=== PATIENT | male | born 1955 | race Caucasian/White ===

== ENCOUNTER → 2022-10-26 | Day surgery (SDC) | payer MEDICARE ==
[~2022-10-26] MED LIST: Lactated Ringers 1,000 ML IV SCH; Propofol 200 MG/20 ML SDV ONE; fentaNYL 50 MCG/ML SDV ONE
[2022-10-26 10:54] VITALS: BP 107/72; PULSE 82
== END ==
LOC: CC.SDS 08:43
PROVIDERS: ATTEND Family Medicine
DX: K57.30 Diverticulosis of large intestine without perforation or abscess without bleeding (principal); K64.9 Unspecified hemorrhoids; I48.91 Unspecified atrial fibrillation; N40.0 Benign prostatic hyperplasia without lower urinary tract symptoms; I87.2 Venous insufficiency (chronic) (peripheral); I10 Essential (primary) hypertension; K42.9 Umbilical hernia without obstruction or gangrene; M19.90 Unspecified osteoarthritis, unspecified site; M10.9 Gout, unspecified; Z88.0 Allergy status to penicillin; Z79.01 Long term (current) use of anticoagulants; Z88.6 Allergy status to analgesic agent; Z79.899 Other long term (current) drug therapy
CPT/HCPCS: 00811; J2704; J3010; J7120

== ENCOUNTER → 2024-09-29 | Day surgery (SDC) | payer MEDICARE | LOC: CC.SDS 11:38 | PROVIDERS: ATTEND Family Medicine | DX: I87.2 Venous insufficiency (chronic) (peripheral) (principal); I83.813 Varicose veins of bilateral lower extremities with pain; Z79.899 Other long term (current) drug therapy | CPT/HCPCS: 36415; 36482-50; 80053; 80061; 81001; 84153; 84443; 85025; C1888; J2003 ==